=== PATIENT | female | born 2005 | race Caucasian/White ===

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

== ENCOUNTER → 2025-02-08 14:09 | Outpatient (REF) | payer OTHER, SELFPAY | LOC: HWRAD 14:09 | DX: R91.1 Solitary pulmonary nodule (principal) | CPT/HCPCS: 71271 ==